=== PATIENT | female | born 2000 | race Hispanic/Latino ===

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

== ENCOUNTER 2022-10-19 18:46 | Emergency (ER) | payer SELFPAY ==
[~2022-10-19] VITALS: Ht 160 cm; Wt 99.8 kg
[2022-10-19] MEDS ORDERED: IOPAMIDOL 370 MG/ML 100 ML INFUS..BTL INJ ONE (19:52)
[2022-10-19 22:00] VITALS: O2SAT 98
== END 2022-10-19 22:30 | disposition home or self-care (01) ==
LOC: FSED 19:06
DX: S00.83XA Contusion of other part of head, initial encounter (principal); V43.52XA Car driver injured in collision with other type car in traffic accident, initial encounter; Y92.488 Other paved roadways as the place of occurrence of the external cause
CPT/HCPCS: 70450; 71260; 72125; 73130 ×2; 74177; 80053; 81025; 85025; 99284; Q9967